=== PATIENT | female | born 1950 | race Caucasian/White ===

== ENCOUNTER 2022-11-21 20:47 | Emergency (ER) | payer MEDICARE ==
[2022-11-21] MEDS ORDERED: Morphine 2 MG/ML VIAL ONE (21:15)
[2022-11-21] MEDS ORDERED: Ketorolac Tromethamine 30 MG/ML VIAL ONE (21:16)
[2022-11-21] MEDS ORDERED: Ondansetron PF 4 MG/2 ML Vial ONE (21:16)
[2022-11-21] MEDS ORDERED: Dexamethasone 20 MG/5 ML VIAL ONE (21:16)
== END 2022-11-21 22:15 | disposition home or self-care (01) ==
LOC: NAV ERS 20:47
DX: U07.1 COVID-19 (principal); M54.42 Lumbago with sciatica, left side; E78.5 Hyperlipidemia, unspecified; E78.00 Pure hypercholesterolemia, unspecified; J44.9 Chronic obstructive pulmonary disease, unspecified; E03.9 Hypothyroidism, unspecified; I50.9 Heart failure, unspecified; Z87.891 Personal history of nicotine dependence
CPT/HCPCS: 71045; 96374; 96375; J1100; J1885; J2270; J2405

== ENCOUNTER 2023-04-13 09:04 | Outpatient (CLI) | payer MEDICARE | END 2023-04-13 09:05 | disposition home or self-care (01) | LOC: NAV RAD 09:04 | PROVIDERS: ATTEND Nurse Practitioner Family | DX: S61.412A Laceration without foreign body of left hand, initial encounter (principal) ==

== ENCOUNTER 2024-08-03 07:23 | Emergency (ER) | payer MEDICARE ==
[2024-08-03 08:01] LABS: %Lymphocytes 2.7 % (21.0-51.0); %Monocytes 7.4 % (0.0-10.0); %Neutrophils 86.4 % (42.0-75.0); Hematocrit 37.9 % (36.0-47.0); Manual Diff?? NO; Mean Corpuscular HGB CONC 31.8 g/dL (32.0-36.0); Mean Corpuscular Hemoglobin 29.7 pg (27.0-31.0); Mean Corpuscular Volume 93.4 fl (78.0-98.0); Platelet Count 169 10x3/uL (130-400); Red Blood Cell (RBC) Count 4.06 mill/uL (4.20-5.40); White Blood Cell (WBC) Count 9.8 10x3/uL (4.8-10.8)
[2024-08-03 08:02] LABS: #Basophils 0.1 thou/uL (0.0-0.2); #Eosinphils 0.2 thou/uL (0.0-0.7); #Lymphocytes 0.3 thou/uL (1.20-3.40); #Monocytes 0.7 thou/uL (0.11-0.59); #Neutrophils 8.4 thou/uL (1.40-6.50); %Eosinophils 2.5 % (0.0-10.0); Prothrombin Time 13.6 sec (12.0-14.7)
[2024-08-03 08:03] LABS: PTT 35.3 sec (22.9-36.1)
[2024-08-03 08:11] LABS: ALT (SGPT) 11 U/L (8-55); AST (SGOT) 18 U/L (5-34); Albumin 3.6 g/dL (3.4-4.8); Alkaline Phosphatase 59 U/L (40-110); Anion Gap 13 mmol/L (10-20); BUN (Urea Nitrogen) 8 mg/dL (9.8-20.1); Bilirubin, Total 0.7 mg/dL (0.2-1.2); Calc. Creatinine Clearance 0 mL/min (70-130); Carbon Dioxide 25 mmol/L (23-31); Chloride 99 mmol/L (98-107); Estimated GFR 92; Globulin 2.9 g/dL (2.4-3.5); Glucose 125 mg/dL (83-110); Potassium 3.2 mmol/L (3.5-5.1); Protein, Total 6.5 g/dL (5.8-8.1); Sodium 134 mmol/L (136-145)
[2024-08-03] MEDS ORDERED: Ondansetron PF 4 MG/2 ML Vial ONE (08:44)
== END 2024-08-03 09:24 | disposition home or self-care (01) ==
LOC: NAV ERS 07:23
DX: E87.6 Hypokalemia (principal); R11.0 Nausea; R42 Dizziness and giddiness; J44.9 Chronic obstructive pulmonary disease, unspecified; Z87.891 Personal history of nicotine dependence
CPT/HCPCS: 71045; 80053; 83880; 84484; 85025; 85610; 85730; 93005; 96374; J2405